=== PATIENT | female | born 1945 | race Native Hawaiian/Other Pacific Islander ===

== ENCOUNTER 2016-04-26 11:38 | Outpatient (CLI) | payer OTHER ==
[~2016-04-26 11:38] MED LIST: ACEBUTOLOL200 MG OR; ALLO300T23 PO; CELEXA20 MG PO; CLON0.5T36 PO; LISI10TA11 PO; LYRICA50 MG OR; OMEP20CA PO; ROBAXIN-750750 MG PO; SALAGEN5 MG OR; TIZA4TAB5 PO
[2016-04-26 12:44] LABS: PLATELET COUNT 268 K/uL (152-353)
[2016-04-26 13:09] LABS: POTASSIUM 4.1 mmol/L (3.6-5.2)
== END 2016-04-26 19:08 | disposition home or self-care (01) ==
LOC: LABW 11:38
DX: R79.89 Other specified abnormal findings of blood chemistry (principal); I10 Essential (primary) hypertension; E55.9 Vitamin D deficiency, unspecified
CPT/HCPCS: 36415; 80053; 82306; 82570; 83970; 84155; 85027

== ENCOUNTER 2016-06-04 14:33 | Outpatient (CLI) | payer OTHER | END 2016-06-04 19:37 | disposition home or self-care (01) | LOC: RAD 14:33 | DX: M25.562 Pain in left knee (principal) ==

== ENCOUNTER 2016-09-25 08:13 | Outpatient (CLI) | payer OTHER ==
[2016-09-25 08:41] LABS: PLATELET COUNT 302 K/uL (152-353)
[2016-09-25 08:55] LABS: POTASSIUM 4.2 mmol/L (3.6-5.2)
== END 2016-09-25 09:15 | disposition home or self-care (01) ==
LOC: LABW 08:13
PROVIDERS: Internal Medicine Nephrology
DX: R79.89 Other specified abnormal findings of blood chemistry (principal); R53.83 Other fatigue; I10 Essential (primary) hypertension; E78.4 Other hyperlipidemia; D51.0 Vitamin B12 deficiency anemia due to intrinsic factor deficiency; I50.9 Heart failure, unspecified; E55.9 Vitamin D deficiency, unspecified
CPT/HCPCS: 36415; 80053; 82306; 82570; 83970; 84155; 85027

== ENCOUNTER 2017-07-23 14:15 | Outpatient (CLI) | payer OTHER ==
[2017-07-23 15:05] LABS: PLATELET COUNT 268 K/uL (152-353)
[2017-07-23 15:54] LABS: POTASSIUM 4.7 mmol/L (3.6-5.2)
== END 2017-07-23 22:32 | disposition home or self-care (01) ==
LOC: LAB 14:15
PROVIDERS: Nurse Practitioner Family
DX: J44.0 Chronic obstructive pulmonary disease with (acute) lower respiratory infection (principal); R53.82 Chronic fatigue, unspecified; R53.81 Other malaise; D51.8 Other vitamin B12 deficiency anemias; I73.89 Other specified peripheral vascular diseases; Z79.899 Other long term (current) drug therapy; Z51.81 Encounter for therapeutic drug level monitoring
CPT/HCPCS: 80053; 80061; 81000; 83036; 84436; 84443; 85027; 87086; 87088

== ENCOUNTER 2020-07-25 11:03 | Outpatient (CLI) | payer OTHER | END 2020-07-25 19:32 | disposition home or self-care (01) | LOC: US 11:03 | PROVIDERS: ATTEND Nurse Practitioner Family | DX: M25.561 Pain in right knee (principal); M25.461 Effusion, right knee ==

== ENCOUNTER 2021-10-26 14:56 | Outpatient (CLI) | payer OTHER ==
[~2021-10-26] VITALS: Ht 157.5 cm; Wt 81.6 kg
[2021-10-26 15:39] VITALS: BP 156/63; TEMP 99.5
--- NOTE | 2021-10-26 16:05 | NUR ---
1539 PT AMBULATED TO ROOM 1128 FOR OP INFUSION USING A ROLLATOR ACCOMPANIED BY HER SON. VS OBTAINED. 24G PIV TO RFA X 1 ATTEMPT. 1600 BEBTELOVIMAB IVP OVER SECONDS FOLLWED BY 10ML NS FLUSH WITH NO COMPLICATIONS. 1607 PT SITTING IN RECLINER TALKING WITH HER SON DENIES ANY COMPLAINTS AT THIS TIME. NO ADVERSE REACTION SUSPECTED.
--- NOTE | 2021-10-26 16:11 | NUR ---
RAD IN ROOM FOR CXR PER MD ORDERS.
[2021-10-26 16:15] VITALS: BP 134/58; TEMP 99.2
--- NOTE | 2021-10-26 16:27 | NUR ---
IV D/C INTACT AT THIS TIME. PT TOLERATED INFUSION WITH NO ADVERSE REACTIONS SUSPECTED. PT DENIES ANY COMPLAINTS AT THIS TIME.
[2021-10-26 16:33] VITALS: BP 140/52; TEMP 99
[2021-10-26 16:58] VITALS: BP 135/57; TEMP 98
--- NOTE | 2021-10-26 16:58 | NUR ---
PT LEFT WITH FAMILY. NO ACUTE DISTRESS NOTED. NO CO AT THIS TIME. VS WNL. PT LEFT VIA AMB WITH ROLLATOR.
== END 2021-10-26 22:28 | disposition home or self-care (01) ==
LOC: INF 14:56
PROVIDERS: ATTEND Family Medicine
DX: U07.1 COVID-19 (principal)
CPT/HCPCS: 96374; Q0222